=== PATIENT | female | born 1960 | race Caucasian/White ===

== ENCOUNTER 2018-02-25 09:09 | Emergency (ER) | payer BC ==
[2018-02-25 09:27] VITALS: BP 127/86
--- NOTE | 2018-02-25 09:57 | UC ---
Skin Complaint HPI - HPI Summary HPI Summary: 57 yo female presents with bug bite to right abdomen first noticed 2 days ago seems to be increasing in size and redness. Unsure what bit her, but is worried that it could have been a tick as [place] time. Has been applying neosporin. Denies fever, chills, muscle/joint pain. - History of Current Complaint Chief Complaint: UCSkin Time Seen by Provider: 02/25/18 09:57 Stated Complaint: TICK BITE Hx Obtained From: Patient Hx Last Menstrual Period: 2013 Onset/Duration: Gradual Onset Skin Exposure Onset/Duration: Days Ago Current Severity: None Pain Intensity: 0 - Allergy/Home Medications Allergies/Adverse Reactions: Allergies Allergy/AdvReac Type Severity Reaction Status Date / Time No Known Allergies Allergy Verified 02/25/18 09:28 Review of Systems Constitutional: Negative Skin: Rash Respiratory: Negative Cardiovascular: Negative Neurovascular: Negative Neurological: Negative Psychological: Negative All Other Systems Reviewed And Are Negative: Yes PMH/Surg Hx/FS Hx/Imm Hx - Additional Past Medical History Additional PMH: None Previously Healthy: Yes - Surgical History Surgical History: Yes Surgery Procedure, Year, and Place: tonsilectomy, adenoidectomy, c section x 1 - Family History Known Family History: Positive: None - Social History Occupation: Employed Full-time Lives: With Family Alcohol Use: Rare Substance Use Type: None Smoking Status (MU): Never Smoked Tobacco Physical Exam - Summary Physical Exam Summary: GENERAL: NAD. WDWN. No pain distress. SKIN: Right abdomen: 5mm area of moderate erythema and mild edema with surround 3.0cm area of mild erythema and warmth. No streaking, bleeding, or drainage. NECK: Supple. Nontender. No lymphadenopathy. CHEST: No accessory muscle use. Breathing comfortably and in no distress. CV: Pulses intact NEURO: Alert. CN II-XII grossly intact. PSYCH: Age appropriate behavior. Triage Information Reviewed: Yes Vital Signs: Initial Vital Signs Temp 98 F 02/25/18 09:25 Pulse 68 02/25/18 09:25 Resp 16 02/25/18 09:25 BP 127/86 02/25/18 09:25 Pulse Ox 100 02/25/18 09:25 Course/Dx - Course Course Of Treatment: Bug bite with cellulitis. Possible tick. Will treat with doxycycline and have her f/u if she develops any signs/symptoms of lyme disease. - Diagnoses Provider Diagnoses: Insect bite with cellulitis abdomen Discharge - Sign-Out/Discharge Documenting (check all that apply): Patient Departure - Discharge Plan Condition: Stable Disposition: HOME Prescriptions: DOXYcycline CAP(*) [DOXYcycline 100MG CAP(*)] 100 mg PO BID #14 cap Patient Education Materials: Lyme Disease (ED), Tick Bite (ED) Referrals: Tatyana Jean Baptiste MD [Primary Care Provider] - Additional Instructions: If you develop a fever, shortness of breath, chest pain, new or worsening symptoms - please call your PCP or go to the ED. - Billing Disposition and Condition Condition: STABLE Disposition: Home
== END 2018-02-25 10:18 | disposition home or self-care (01) ==
LOC: UCEAST 09:09
DX: S30.861A Insect bite (nonvenomous) of abdominal wall, initial encounter (principal); L03.311 Cellulitis of abdominal wall; W57.XXXA Bitten or stung by nonvenomous insect and other nonvenomous arthropods, initial encounter; Y92.89 Other specified places as the place of occurrence of the external cause
CPT/HCPCS: 99212; G0463